=== PATIENT | male | born 1990 | race Two or more races ===

== ENCOUNTER 2022-12-13 07:15 | Day surgery (SDC) | payer OTHER ==
[~2022-12-13] VITALS: Ht 180.3 cm; Wt 86.2 kg
[2022-12-13] MEDS ORDERED: VANCOMYCIN PER PHARMACY 0 MG IV SCH (08:30)
[2022-12-13] MEDS ORDERED: VANCOMYCIN 1GM/250ML 250 ML IV ONE (08:45)
[2022-12-13] MEDS ORDERED: fentaNYL CITRATE 100 MCG/2 ML VL ONE (13:20)
[2022-12-13] MEDS ORDERED: MIDAZOLAM HCL 2MG/2ML 2ml VIAL (1mg/ml) ONE (13:20)
[2022-12-13] MEDS ORDERED: LIDOCAINE 2%HCL (LOCAL ANESTH.) INJ 20ML MDV ONE (13:22)
[2022-12-13] MEDS ORDERED: VANCOMYCIN HCL 1000 MG VL ONE (13:29)
[2022-12-13] MEDS ORDERED: GELATIN 1 SPONGE SIZE 50 TOP ONE (13:52)
== END 2022-12-13 16:05 ==
LOC: EEVIPCON → CATH 07:15
PROVIDERS: ATTEND Specialist
DX: I42.8 Other cardiomyopathies (principal); Z45.02 Encounter for adjustment and management of automatic implantable cardiac defibrillator; Z86.79 Personal history of other diseases of the circulatory system; Z87.891 Personal history of nicotine dependence
CPT/HCPCS: 33263; 36415; 87426; J2250; J3010; J3370; J7040